=== PATIENT | male | born 1990 | race Caucasian/White ===

== ENCOUNTER 2016-10-13 12:41 | Emergency (ER) | payer BC, OTHER ==
[~2016-10-13] VITALS: Ht 177.8 cm; Wt 50.3 kg
[2016-10-13] MEDS ORDERED: NS 1,000 ML IV ONE (14:15)
[2016-10-13 14:52] LABS: WHITE BLOOD COUNT 9.5 K/mm3 (4.0-10.0)
[2016-10-13 14:53] LABS: MEAN CORPUSCULAR HEMOGLOBIN 30.3 pg (27.0-33.0); MEAN CORPUSCULAR HGB CONC 36.5 g/dl (32.0-36.5); MEAN CORPUSCULAR VOLUME 83.9 fl (80.0-96.0)
[2016-10-13 14:54] LABS: BASO % 0.7 % (0.0-1.0); EOS % 0.9 % (0.0-3.0); LARGE UNSTAINED CELL % 2.1 % (0.0-4.0); LYMPH % 19.8 % (24.0-44.0); MONO % 11.8 % (0.0-5.0); NEUTROPHILS % 64.4 % (36.0-66.0); PLATELET COUNT, AUTOMATED 316 k/mm3 (150-450); RED CELL DISTRIBUTION WIDTH 12.8 % (11.5-14.5)
[2016-10-13 14:55] LABS: BASO # 0.7 K/mm3 (0.0-0.2); DIFF SLIDE NUMBER 268; EOS # 0.7 K/mm3 (0.0-0.50); LARGE UNSTAINED CELL # 2.1 K/mm3 (0.0-0.4); MONO # 1.3 K/mm3 (0.0-0.8); NEUTROPHILS # 6.3 K/mm3 (1.8-7.7)
[2016-10-13 15:18] LABS: ALBUMIN 3.4 GM/DL (3.2-5.2); ALKALINE PHOSPHATASE 50 U/L (45-117); ALT/SGPT 28 U/L (12-78); AMYLASE 51 U/L (25-115); ANION GAP 13 MEQ/L (8-16); AST/SGOT 20 U/L (15-37); BILIRUBIN,DIRECT 0.2 MG/DL (0.0-0.2); BLOOD UREA NITROGEN 16 MG/DL (7-18); CALCIUM LEVEL 8.3 MG/DL (8.5-10.1); CARBON DIOXIDE LEVEL 25 MEQ/L (21-32); CHLORIDE LEVEL 98 MEQ/L (98-107); CREATININE FOR GFR 1.14 MG/DL (0.70-1.30); GLOMERULAR FILTRATION RATE > 60.0 (>60); GLUCOSE, FASTING 76 MG/DL (70-105); POTASSIUM SERUM 3.6 MEQ/L (3.5-5.1); SODIUM LEVEL 136 MEQ/L (136-145); T UPTAKE 35 % (33-40); THYROXINE (T4) 10.2 UG/DL (4.5-12.0); TOTAL PROTEIN 6.8 GM/DL (6.4-8.2)
[2016-10-13] MEDS ORDERED: GASTROGRAFIN SOLUTION 30ML (Q9963) As Ordered ONE (15:32)
[2016-10-13] MEDS ORDERED: METOCLOPRAMIDE INJ 10MG/2ML VIAL (J2765) IV ONE (15:45)
[2016-10-13 16:15] LABS: METHADONE URINE NEGATIVE (NEGATIVE)
[2016-10-13] MEDS ORDERED: ISOVUE-370 76% 100ML VIAL (Q9967) As Ordered ONE (16:15)
[2016-10-13] MEDS ORDERED: GASTROGRAFIN SOLUTION 30ML (Q9963) PO ONE ×2 (16:45→17:15)
--- NOTE | 2016-10-13 18:20 | REP ---
Clinical: Abdominal pain with diarrhea and vomiting. Technique: Axial contrast enhanced images from the lung bases to the pubic symphysis using oral and 100 ml Isovue 370 intravenous contrast material with coronal and sagittal re-formations. Findings: Lung bases are clear. Visualized heart and pericardium normal. Liver, spleen, pancreas, gallbladder, bilateral adrenal glands and kidneys are normal. The enteric system is without obstruction or acute inflammatory process. Normal terminal ileum and appendix identified in the right lower quadrant. Pelvis demonstrates normal bladder and age appropriate prostate/seminal vesicles. No free air. No free fluid. No adenopathy. Skeletal structures intact. Vasculature normal. Impression: Normal contrast enhanced CT of the abdomen and pelvis. Signed by Sebastien Whyte MD 10/13/2016 06:11 P
[2016-10-13] MEDS ORDERED: PROM25TA PO (19:08)
[2016-10-13] MEDS ORDERED: OMEP40CA2 PO (19:08)
[2016-10-13 19:14] VITALS: BP 113/56
--- NOTE | 2016-10-14 08:01 | ECGEPIP ---
Stationary ECG Study [facility] - ED Test Date: 2016-10-13 Pat Name: EVENS MENDEZ Department: Room: - Gender: M Cardiothoracic Icu Rn: sona : 1990 Requested By: JIMI YOUNG PA-C. Order Number: [id number] Reading MD: Johanny Tadeo Measurements Intervals [place] Rate: 89 P: 77 CT: 104 QRS: 97 QRSD: 116 T: 27 QT: 381 QTc: 466 Interpretive Statements SINUS RHYTHM WITH SHORT CT INTERVAL BORDERLINE RIGHT AXIS DEVIATION MODERATE INTRAVENTRICULAR CONDUCTION DELAY NONSPECIFIC T-WAVE ABNORMALITY NO PRIOR FOR COMPARISON Electronically Signed On 10-14-2016 8:01:05 EDT by Johanny Tadeo
== END 2016-10-13 19:27 | disposition home or self-care (01) ==
LOC: M ED 14:38
DX: R11.2 Nausea with vomiting, unspecified (principal); R19.7 Diarrhea, unspecified; R63.4 Abnormal weight loss
CPT/HCPCS: 36415; 74177; 80048; 80076; 80306; 81001; 82150; 83605; 83690; 84436; 84443; 84479; 85025; 87507; 93005; 96374; 99284; J2765; Q9963; Q9967

== ENCOUNTER → 2021-04-07 | Outpatient (CLI) | payer BC, OTHER ==
[~2021-04-07] MED LIST: OMEP40CA4 PO; PROM25TA12 PO
--- NOTE | 2021-04-07 16:49 | REP ---
INDICATION: LOW BACK PAIN, UNSPECIFIED. COMPARISON: None TECHNIQUE: AP and FINDINGS: Vertebral body height and alignment is within normal limits. The disc spaces are symmetric and well maintained. The pedicles are intact bilaterally. IMPRESSION: Within normal limits. <Electronically signed by Norbert James > 04/07/21 1385
== END ==
LOC: M PLAIMG 14:51
PROVIDERS: ATTEND Nurse Practitioner Family
DX: M54.50 Low back pain, unspecified (principal)